=== PATIENT | female | born 1970 | race Caucasian/White ===

== ENCOUNTER 2022-08-26 15:24 | Outpatient (CLI) | payer OTHER, SELFPAY ==
--- NOTE | ~2022-08-26 | XR_ITS ---
EXAM: XR hip BI 2V w AP pelvis DATE: 08/26/2022 15:48 HISTORY: M25.559 - bilateral pain, mostly left lateral s/p fall . COMPARISON: None available. FINDINGS: Normal mineralization. No fracture or dislocation. No lytic or blastic lesion. Lumbar dege nerative disc disease. Moderate osteitis pubis. Mild bilateral hip osteoarthritic arthritis, slightly worse on the right. Mild degenerative change in the bilateral SI joints. No erosion or periosteal ch mark. Mild scattered enthesopathy. Pelvic phleboliths. IMPRESSION: No acute osseous finding in the pelvis or bilateral hips. Reviewed, dictated and finalized at location K.
== END 2022-08-26 15:25 | disposition home or self-care (01) ==
PROVIDERS: PCP Family Medicine; Visit Provider Nurse Practitioner Family
DX: M25.551 Pain in right hip (principal); M25.552 Pain in left hip
CPT/HCPCS: 73521